=== PATIENT | male | born 1985 ===

== ENCOUNTER 2024-05-27 07:35 | Outpatient (RCR) | payer OTHER, SELFPAY | END 2024-05-27 23:59 | disposition home or self-care (01) | LOC: RPT 07:35 | DX: M54.16 Radiculopathy, lumbar region (principal); Z73.6 Limitation of activities due to disability | CPT/HCPCS: 97110; 97162 ==

== ENCOUNTER 2024-06-17 16:48 | Outpatient (RCR) | payer OTHER, SELFPAY | END 2024-06-17 23:59 | disposition home or self-care (01) | LOC: RPT 16:48 | DX: M54.16 Radiculopathy, lumbar region (principal); Z73.6 Limitation of activities due to disability | CPT/HCPCS: 97110; 97140 ==

== ENCOUNTER 2024-07-01 16:54 | Outpatient (RCR) | payer OTHER, SELFPAY | END 2024-07-01 23:59 | disposition home or self-care (01) | LOC: RPT 16:54 | DX: M54.16 Radiculopathy, lumbar region (principal); Z73.6 Limitation of activities due to disability | CPT/HCPCS: 97110 ==